=== PATIENT | female | born 1950 | race Two or more races ===

== ENCOUNTER 2020-11-13 06:06 | Day surgery (SDC) | payer OTHER, MEDICAID ==
[2020-11-11 15:15] LABS: BASOPHIL % 0.9 % (0.2-1.3); PLATELET COUNT 300 x10^3mcL (179-408); RED CELL DISTRIBUTION WIDTH 12.6 % (12.3-17.7)
[2020-11-11 15:22] LABS: CALCIUM 9.3 mg/dL (8.5-10.1); CARBON DIOXIDE 24.6 mmol/L (21-32); CHLORIDE SERUM 106 mmol/L (98-107); CREATININE SERUM 0.7 mg/dL (0.6-1.0); GFR1 > 60 mL/min; GLUCOSE SERUM 146 mg/dL (74-106); POTASSIUM SERUM 4.1 mmol/L (3.5-5.1); SODIUM SERUM 141 mmol/L (136-145)
--- NOTE | 2020-11-12 15:14 | NUR ---
LAB TEST SENT TO [facility] FOR REVIEW. DR. Susan MONTE OFFICE CALLED REGARDING H&P X2. NO RETURN CALL OF YET.
[~2020-11-13] VITALS: Ht 157.5 cm; Wt 64.9 kg
[2020-11-13 06:36] VITALS: BP 146/70
[2020-11-13 17:08] VITALS: BP 140/66
== END 2020-11-13 15:05 | disposition home or self-care (01) ==
LOC: DS 06:06 → OR 07:30 → DS 07:30
PROVIDERS: ATTEND Student in an Organized Health Care Education/Training Program
DX: M17.0 Bilateral primary osteoarthritis of knee (principal); I10 Essential (primary) hypertension; E11.9 Type 2 diabetes mellitus without complications; E78.00 Pure hypercholesterolemia, unspecified; D64.9 Anemia, unspecified; K21.9 Gastro-esophageal reflux disease without esophagitis; Z98.891 History of uterine scar from previous surgery; Z88.0 Allergy status to penicillin; Z79.899 Other long term (current) drug therapy; Z79.82 Long term (current) use of aspirin; Z79.84 Long term (current) use of oral hypoglycemic drugs; Z98.890 Other specified postprocedural states; Z90.710 Acquired absence of both cervix and uterus
CPT/HCPCS: 82962; C1713; C1776; J0131; J0330; J0690; J1170; J1885; J2405; J2550; J2704; J2710; J3010; J3490; J7120